=== PATIENT | male | born 1980 | race Caucasian/White ===

== ENCOUNTER 2021-12-19 05:08 | Emergency (ER) | payer SELFPAY ==
[~2021-12-19] VITALS: Ht 170.2 cm; Wt 62.2 kg
[2021-12-19 05:50] VITALS: BP 157/110
== END 2021-12-19 08:23 | disposition left against medical advice (07) ==
LOC: ER 05:08
DX: Z53.21 Procedure and treatment not carried out due to patient leaving prior to being seen by health care provider (principal)